=== PATIENT | female | born 1940 | race Caucasian/White ===

== ENCOUNTER 2018-04-29 10:22 | Inpatient (IN) | payer MEDICARE, OTHER ==
[~2018-04-29] VITALS: Ht 162.6 cm; Wt 55.0 kg
--- NOTE | ~2018-04-29 | EKG ---
[place], [place] ELECTROCARDIOGRAM REPORT NAME: AMELIA MARAVILLA UNIT #: [id number] ROOM: 523 DOCTOR: SACHIN DRAFT REPORT BIRTHDATE: [birth year] [facility] Test Date: 2018-04-29 Test Time: 11:02:56 Pat Name: AMELIA MARAVILLA Department: Room: 523 Gender: F Delivery Assistant: NEELAM : 1940 Requested By: AMOR CARDOZA Order Number: [id number] Reading MD: Ashli Huerta MD Measurements Intervals [place] Rate: 82 P: 54 NH: 178 QRS: -10 QRSD: 88 T: 63 QT: 453 QTc: 529 Interpretive Statements Sinus rhythm Atrial premature complex Prolonged QT interval Baseline wander in lead(s) II,III,aVF No previous ECG available for comparison Electronically Signed On 04-30-2018 8:48:12 PST by Ashli Huerta MD CM:EKGRPT:ELECTROCARDIOGRAM REPORT [id number] AMOR CARDOZA EPIPHANY DRAFT REPORT AMOR CARDOZA
[~2018-04-29 10:22] MED LIST: VITAMIN D400 I1 PO
[2018-04-29] MEDS ORDERED: BLOOD PRESSURE (10:23)
[2018-04-29 10:24] VITALS: BP 150/77
[2018-04-29] MEDS ORDERED: VISTARIL25 MG PO (10:24)
[2018-04-29 11:11] LABS: BASO % 0.3 % (0.0-1.0); EOS # 0.2 10*3/uL (0.0-0.4); EOS % 1.5 % (1.0-4.0); HEMATOCRIT 41.3 % (37.0-47.0); HEMOGLOBIN 13.9 g/dl (12.0-16.0); LYMPH % 7.2 % (27.0-41.0); MEAN CELL VOLUME 88.2 fl (81.0-99.0); MEAN CORPUSCULAR HGB 29.7 pg (27.0-31.0); MEAN CORPUSCULAR HGB CONC 33.7 g/dl (33.0-37.0); MEAN PLATELET VOLUME 9.1 fl (9.6-12.3); MONO # 0.5 10*3/uL (0.1-1.0); MONO % 3.6 % (3.0-9.0); NEUT # 11.8 10*3/uL (2.3-7.9); NEUT % 86.7 % (47.0-73.0); PLATELET COUNT AUTOMATED 328 10*3/uL (130-400); RED BLOOD COUNT 4.68 10*6/uL (4.10-5.10); RED CELL DISTRI WIDTH 13.9 % (0-14.5); WHITE BLOOD COUNT 13.7 10*3/uL (4.8-10.8)
[2018-04-29 11:22] LABS: INTERNATIONAL NORM RATIO 0.9 (2.0-3.5)
[2018-04-29 11:30] LABS: ALBUMIN 3.4 gm/dl (3.1-4.5); ALKALINE PHOSPHATASE 114 U/L (45-117); BUN 9 mg/dl (7-24); CHLORIDE 107 mmol/L (98-107); CREATININE 0.85 mg/dL (0.55-1.02); POTASSIUM 3.5 mmol/L (3.5-5.1); SGOT/AST 19 IU/L (3-35); SGPT/ALT 17 U/L (12-78); SODIUM 140 mmol/L (136-145); TOTAL PROTEIN 7.3 gm/dL (6.4-8.2)
[2018-04-29 11:34] LABS: TROPONIN I < 0.015 ng/ml (<0.045)
[2018-04-29 12:04] VITALS: BP 146/80
[2018-04-29 12:45] VITALS: BP 133/67
[2018-04-29] MEDS ORDERED: AMLODIPINE BESYL5 MG PO (12:59)
[2018-04-29 15:22] LABS: BILIRUBIN NEGATIVE (NEGATIVE); BLOOD TRACE-LYSED (NEGATIVE); CLARITY CLEAR (CLEAR); COLOR YELLOW (YELLOW); GLUCOSE NEGATIVE (NEGATIVE); KETONE NEGATIVE (NEGATIVE); LEUKO ESTERASE 2+ (NEGATIVE); NITRITE NEGATIVE (NEGATIVE); PH 7.5 (5.0-9.0); UROBILINOGEN 0.2 E.U./dl (0.2-1.0)
[2018-04-29 15:27] LABS: BACTERIA 2+; RBC 0-2 rbc/hpf (0-2)
[2018-04-29 16:00] VITALS: BP 137/62
[2018-04-29 20:00] VITALS: BP 123/71
[2018-04-30] VITALS: BP 126/64
[2018-04-30 08:36] LABS: BASO % 0.4 % (0.0-1.0); EOS # 0.2 10*3/uL (0.0-0.4); EOS % 2.8 % (1.0-4.0); HEMOGLOBIN 12.9 g/dl (12.0-16.0); LYMPH # 1.5 10*3/uL (1.3-4.4); LYMPH % 20.6 % (27.0-41.0); MEAN CELL VOLUME 90.1 fl (81.0-99.0); MEAN CORPUSCULAR HGB 29.1 pg (27.0-31.0); MEAN CORPUSCULAR HGB CONC 32.3 g/dl (33.0-37.0); MEAN PLATELET VOLUME 9.5 fl (9.6-12.3); MONO # 0.4 10*3/uL (0.1-1.0); MONO % 5.6 % (3.0-9.0); NEUT % 70.2 % (47.0-73.0); PLATELET COUNT AUTOMATED 317 10*3/uL (130-400); RED BLOOD COUNT 4.44 10*6/uL (4.10-5.10); RED CELL DISTRI WIDTH 14.1 % (0-14.5); WHITE BLOOD COUNT 7.1 10*3/uL (4.8-10.8)
[2018-04-30 08:52] LABS: BUN 7 mg/dl (7-24); CHLORIDE 108 mmol/L (98-107); CHOLESTEROL 217 mg/dL (<200); HDL CHOLESTEROL 42 mg/dl (40-60); LDL CHOLESTEROL 142 mg/dL (9-159); PHOSPHOROUS 3.6 mg/dL (2.5-4.9); POTASSIUM 3.6 mmol/L (3.5-5.1); SODIUM 142 mmol/L (136-145); TRIGLYCERIDES 166 mg/dl (<150); VLDL CHOLESTEROL 33 mg/dL (6-40)
[2018-04-30 09:47] LABS: VITAMIN D, 25-HYDROXY 31.2 ng/mL (30-100)
[2018-04-30 12:00] VITALS: BP 135/65
[2018-04-30 16:00] VITALS: BP 130/69
[2018-04-30 20:00] VITALS: BP 139/67
[2018-05-01] VITALS: BP 123/68
[2018-05-01 07:46] LABS: BASO % 0.3 % (0.0-1.0); EOS # 0.1 10*3/uL (0.0-0.4); EOS % 0.4 % (1.0-4.0); HEMATOCRIT 37.9 % (37.0-47.0); HEMOGLOBIN 12.6 g/dl (12.0-16.0); LYMPH # 0.8 10*3/uL (1.3-4.4); LYMPH % 7.2 % (27.0-41.0); MEAN CELL VOLUME 87.9 fl (81.0-99.0); MEAN CORPUSCULAR HGB 29.2 pg (27.0-31.0); MEAN CORPUSCULAR HGB CONC 33.2 g/dl (33.0-37.0); MEAN PLATELET VOLUME 9.7 fl (9.6-12.3); MONO # 0.5 10*3/uL (0.1-1.0); MONO % 3.9 % (3.0-9.0); NEUT # 10.1 10*3/uL (2.3-7.9); NEUT % 87.7 % (47.0-73.0); PLATELET COUNT AUTOMATED 281 10*3/uL (130-400); RED BLOOD COUNT 4.31 10*6/uL (4.10-5.10); RED CELL DISTRI WIDTH 13.8 % (0-14.5); WHITE BLOOD COUNT 11.5 10*3/uL (4.8-10.8)
[2018-05-01 08:00] VITALS: BP 128/78
[2018-05-01 08:06] LABS: ALBUMIN 3.5 gm/dl (3.1-4.5); ALKALINE PHOSPHATASE 106 U/L (45-117); BUN 6 mg/dl (7-24); CHLORIDE 106 mmol/L (98-107); CREATININE 0.67 mg/dL (0.55-1.02); POTASSIUM 3.1 mmol/L (3.5-5.1); SGOT/AST 20 IU/L (3-35); SGPT/ALT 19 U/L (12-78); SODIUM 141 mmol/L (136-145); TOTAL PROTEIN 6.7 gm/dL (6.4-8.2)
[2018-05-01 08:21] VITALS: BP 128/78
[2018-05-01 12:00] VITALS: BP 138/78
[2018-05-01] MEDS ORDERED: MELATONIN3 MG PO (12:35)
== END 2018-05-01 13:18 | disposition home or self-care (01) | DRG 605 ==
LOC: ED 10:22 → 5E 11:41 → EDHOLD 11:41 → 5E 11:57
PROVIDERS: Emergency Medicine; Nurse Practitioner Family; Student in an Organized Health Care Education/Training Program
PROC: 0HQ0XZZ Repair Scalp Skin, External Approach (ICD-10-PCS; principal; 2018-04-29)
DX: S01.01XA Laceration without foreign body of scalp, initial encounter (principal); N39.0 Urinary tract infection, site not specified; R53.1 Weakness; D72.829 Elevated white blood cell count, unspecified; I10 Essential (primary) hypertension; F41.9 Anxiety disorder, unspecified; E55.9 Vitamin D deficiency, unspecified; E53.8 Deficiency of other specified B group vitamins; G30.9 Alzheimer's disease, unspecified; F02.80 Dementia in other diseases classified elsewhere, unspecified severity, without behavioral disturbance, psychotic disturbance, mood disturbance, and anxiety; R29.6 Repeated falls; G47.00 Insomnia, unspecified; R42 Dizziness and giddiness; W19.XXXA Unspecified fall, initial encounter; Y93.89 Activity, other specified; Z79.899 Other long term (current) drug therapy; Y92.89 Other specified places as the place of occurrence of the external cause; Y99.8 Other external cause status; Z85.038 Personal history of other malignant neoplasm of large intestine

== ENCOUNTER 2020-09-10 13:20 | Inpatient (IN) | payer MEDICARE, OTHER ==
[~2020-09-10] VITALS: Ht 160 cm; Wt 50.8 kg
[~2020-09-10 13:20] MED LIST changes: +AMLODIPINE BESYL5 MG PO; +BLOOD PRESSURE; +MELATONIN3 MG PO; +VISTARIL25 MG PO
[2020-09-10 13:30] VITALS: BP 132/74
[2020-09-10 14:13] LABS: HEMATOCRIT 44.3 % (37.0-47.0); MEAN CELL VOLUME 88.2 fl (81.0-99.0); MEAN CORPUSCULAR HGB 28.9 pg (27.0-31.0); MEAN CORPUSCULAR HGB CONC 32.7 g/dl (33.0-37.0); MEAN PLATELET VOLUME 10.1 fl (9.6-12.3); PLATELET COUNT AUTOMATED 485 10*3/uL (130-400); RED BLOOD COUNT 5.02 10*6/uL (4.10-5.10); RED CELL DISTRI WIDTH 13.9 % (0-14.5); WHITE BLOOD COUNT 31.8 10*3/uL (4.8-10.8)
[2020-09-10 14:30] LABS: ALBUMIN 2.5 gm/dl (3.1-4.5); ALKALINE PHOSPHATASE 139 U/L (45-117); BUN 43 mg/dl (7-24); BURR CELLS FEW; CHLORIDE 111 mmol/L (98-107); CPK 11 U/L (26-192); CREATININE 0.67 mg/dL (0.55-1.02); PLATELET SUFFICIENCY NORMAL (NORMAL); POTASSIUM 3.4 mmol/L (3.5-5.1); SGOT/AST 11 IU/L (3-35); SGPT/ALT 13 U/L (12-78); SODIUM 146 mmol/L (136-145); TOTAL CELLS COUNTED 100 #CELLS; TOTAL PROTEIN 7.1 gm/dL (6.4-8.2)
[2020-09-10 14:31] LABS: TROPONIN I < 0.015 ng/ml (<0.045)
[2020-09-10 15:58] LABS: BILIRUBIN 2+ (Negative); BLOOD Negative (Negative); CLARITY Clear (Clear); COLOR Dark Yellow (Yellow); GLUCOSE Negative (Negative); KETONE 2+ (Negative); LEUKO ESTERASE Trace (Negative); NITRITE Negative (Negative)
[2020-09-10 16:09] LABS: BACTERIA 1+; EPITHELIAL CELLS 0-2; FINE GRANULAR CAST 0-2; MUCOUS 1+; RBC 0-2 rbc/hpf (0-2); YEAST TRACE
[2020-09-10 16:53] VITALS: BP 135/78
[2020-09-10 18:30] VITALS: BP 140/73
[2020-09-10] MEDS ORDERED: SERTRALINE HYDR50 MG PO (18:37)
[2020-09-10] MEDS ORDERED: FLUCONAZOLE PO (18:38)
[2020-09-10 20:00] VITALS: BP 146/77
[2020-09-11] VITALS: BP 132/73
[2020-09-11 06:01] LABS: ALBUMIN 2.2 gm/dl (3.1-4.5); ALKALINE PHOSPHATASE 128 U/L (45-117); BUN 38 mg/dl (7-24); CHLORIDE 120 mmol/L (98-107); CREATININE 0.66 mg/dL (0.55-1.02); POTASSIUM 3.6 mmol/L (3.5-5.1); SGOT/AST 7 IU/L (3-35); SGPT/ALT 11 U/L (12-78); SODIUM 152 mmol/L (136-145); TOTAL PROTEIN 6.4 gm/dL (6.4-8.2)
[2020-09-11 06:21] LABS: HEMATOCRIT 42.9 % (37.0-47.0); MEAN CORPUSCULAR HGB 28.5 pg (27.0-31.0); MEAN CORPUSCULAR HGB CONC 31.2 g/dl (33.0-37.0); MEAN PLATELET VOLUME 10.6 fl (9.6-12.3); PLATELET COUNT AUTOMATED 450 10*3/uL (130-400); RED CELL DISTRI WIDTH 13.9 % (0-14.5)
[2020-09-11 06:23] LABS: MEAN CELL VOLUME 91.3 fl (81.0-99.0)
[2020-09-11 07:11] LABS: BURR CELLS MODERATE; PLATELET SUFFICIENCY HIGH (NORMAL); TOTAL CELLS COUNTED 100 #CELLS
[2020-09-11 07:13] LABS: VITAMIN D, 25-HYDROXY 75.6 ng/mL (30-100)
[2020-09-11 08:00] VITALS: BP 148/83
[2020-09-11 12:00] VITALS: BP 132/70
[2020-09-11 16:00] VITALS: BP 130/68
[2020-09-11 20:00] VITALS: BP 120/62
[2020-09-12] VITALS: BP 149/77
[2020-09-12 07:15] LABS: HEMATOCRIT 42.5 % (37.0-47.0); MEAN CELL VOLUME 91.2 fl (81.0-99.0); MEAN CORPUSCULAR HGB 28.8 pg (27.0-31.0); MEAN CORPUSCULAR HGB CONC 31.5 g/dl (33.0-37.0); MEAN PLATELET VOLUME 10.1 fl (9.6-12.3); PLATELET COUNT AUTOMATED 404 10*3/uL (130-400); RED BLOOD COUNT 4.66 10*6/uL (4.10-5.10); RED CELL DISTRI WIDTH 14.1 % (0-14.5); WHITE BLOOD COUNT 13.9 10*3/uL (4.8-10.8)
[2020-09-12 07:33] LABS: CHLORIDE 119 mmol/L (98-107); POTASSIUM 3.2 mmol/L (3.5-5.1); SODIUM 150 mmol/L (136-145)
[2020-09-12 07:36] LABS: CREATININE 0.49 mg/dL (0.55-1.02)
[2020-09-12 07:56] LABS: BUN 29 mg/dl (7-24)
[2020-09-12 08:00] VITALS: BP 139/66
[2020-09-12 08:31] LABS: BURR CELLS MODERATE; OVALOCYTES FEW; PLATELET SUFFICIENCY HIGH (NORMAL); POLYCHROMASIA SLIGHT; TOTAL CELLS COUNTED 100 #CELLS
[2020-09-12 12:00] VITALS: BP 137/75
[2020-09-12 16:00] VITALS: BP 122/63
[2020-09-12 20:00] VITALS: BP 128/69
[2020-09-13] VITALS: BP 131/74
[2020-09-13 08:00] VITALS: BP 130/68
[2020-09-13 08:05] LABS: BUN 23 mg/dl (7-24); CHLORIDE 117 mmol/L (98-107); CREATININE 0.61 mg/dL (0.55-1.02); POTASSIUM 3.1 mmol/L (3.5-5.1); SODIUM 149 mmol/L (136-145)
[2020-09-13 12:00] VITALS: BP 143/73
[2020-09-13 16:00] VITALS: BP 134/65
[2020-09-13 20:00] VITALS: BP 138/77
[2020-09-14] VITALS: BP 148/66
[2020-09-14 07:50] VITALS: BP 122/56
[2020-09-14 12:00] VITALS: BP 132/54
[2020-09-14 16:00] VITALS: BP 130/56
[2020-09-14] MEDS ORDERED: MELATONIN10 M2 PO (17:54)
[2020-09-14 20:00] VITALS: BP 132/77
[2020-09-15] VITALS: BP 144/66
[2020-09-15 06:28] LABS: MEAN CELL VOLUME 89.4 fl (81.0-99.0); MEAN CORPUSCULAR HGB 28.7 pg (27.0-31.0); MEAN CORPUSCULAR HGB CONC 32.1 g/dl (33.0-37.0); MEAN PLATELET VOLUME 9.8 fl (9.6-12.3); PLATELET COUNT AUTOMATED 311 10*3/uL (130-400); RED BLOOD COUNT 4.36 10*6/uL (4.10-5.10); RED CELL DISTRI WIDTH 13.7 % (0-14.5); WHITE BLOOD COUNT 12.2 10*3/uL (4.8-10.8)
[2020-09-15 06:40] LABS: CHLORIDE 111 mmol/L (98-107); CREATININE 0.57 mg/dL (0.55-1.02); POTASSIUM 2.6 mmol/L (3.5-5.1); SODIUM 144 mmol/L (136-145)
[2020-09-15 06:42] LABS: BUN 12 mg/dl (7-24)
[2020-09-15 07:03] LABS: ATYPICAL LYMPHS 1 % (0-0); TOTAL CELLS COUNTED 100 #CELLS
[2020-09-15 07:04] LABS: BURR CELLS FEW; OVALOCYTES FEW; PLATELET SUFFICIENCY NORMAL (NORMAL)
[2020-09-15 08:00] VITALS: BP 153/93
[2020-09-15 12:00] VITALS: BP 157/84
[2020-09-15] MEDS ORDERED: UNASYN 3 GM VIAL3 GM IV ×2 (12:32→14:25)
[2020-09-15] MEDS ORDERED: Nystatin 100,000 UNI PO (12:32)
[2020-09-15] MEDS ORDERED: NATURE'S BLEND F1 MG PO (12:32)
[2020-09-15 16:00] VITALS: BP 157/84
== END 2020-09-15 18:24 | DRG 871 ==
LOC: ED 13:20 → 5E 15:45 → EDHOLD 15:45 → 5E 16:17
PROVIDERS: Emergency Medicine; Internal Medicine; Registered Nurse; ADMIT Internal Medicine; ATTEND Internal Medicine
PROC: 02HV33Z Insertion of Infusion Device into Superior Vena Cava, Percutaneous Approach (ICD-10-PCS; principal; 2020-09-15)
PROC: B548ZZA Ultrasonography of Superior Vena Cava, Guidance (ICD-10-PCS; 2020-09-15)
DX: A41.2 Sepsis due to unspecified staphylococcus (principal); G93.41 Metabolic encephalopathy; J15.6 Pneumonia due to other Gram-negative bacteria; E87.0 Hyperosmolality and hypernatremia; E44.0 Moderate protein-calorie malnutrition; B37.0 Candidal stomatitis; Z68.1 Body mass index [BMI] 19.9 or less, adult; R65.20 Severe sepsis without septic shock; E87.6 Hypokalemia; R13.10 Dysphagia, unspecified; K11.20 Sialoadenitis, unspecified; F03.90 Unspecified dementia, unspecified severity, without behavioral disturbance, psychotic disturbance, mood disturbance, and anxiety; Z66 Do not resuscitate; Z51.5 Encounter for palliative care; F41.9 Anxiety disorder, unspecified; I10 Essential (primary) hypertension; E86.0 Dehydration; M54.2 Cervicalgia; D47.3 Essential (hemorrhagic) thrombocythemia; R63.0 Anorexia; R53.83 Other fatigue; R73.9 Hyperglycemia, unspecified; Z85.038 Personal history of other malignant neoplasm of large intestine; Z82.49 Family history of ischemic heart disease and other diseases of the circulatory system; Z79.899 Other long term (current) drug therapy; Z20.822 Contact with and (suspected) exposure to COVID-19

== ENCOUNTER 2020-09-20 11:16 | Emergency (ER) | payer MEDICARE, OTHER ==
[~2020-09-20] VITALS: Wt 54.9 kg
[~2020-09-20 11:16] MED LIST changes: +FLUCONAZOLE PO; +MELATONIN10 M2 PO; +NATURE'S BLEND F1 MG PO; +Nystatin 100,000 UNI PO; +SERTRALINE HYDR50 MG PO; +UNASYN 3 GM VIAL3 GM IV
[2020-09-20 13:03] LABS: BASO # 0.1 10*3/uL (0.0-0.1); BASO % 0.4 % (0.0-1.0); EOS # 0.7 10*3/uL (0.0-0.4); EOS % 3.9 % (1.0-4.0); HEMATOCRIT 39.6 % (37.0-47.0); LYMPH % 6.1 % (27.0-41.0); MEAN CELL VOLUME 88.8 fl (81.0-99.0); MEAN CORPUSCULAR HGB 28.5 pg (27.0-31.0); MEAN CORPUSCULAR HGB CONC 32.1 g/dl (33.0-37.0); MEAN PLATELET VOLUME 9.8 fl (9.6-12.3); MONO # 0.9 10*3/uL (0.1-1.0); MONO % 5.1 % (3.0-9.0); NEUT % 83.5 % (47.0-73.0); PLATELET COUNT AUTOMATED 273 10*3/uL (130-400); RED BLOOD COUNT 4.46 10*6/uL (4.10-5.10); RED CELL DISTRI WIDTH 14.3 % (0-14.5); WHITE BLOOD COUNT 16.8 10*3/uL (4.8-10.8)
[2020-09-20 13:14] LABS: ACT PARTIAL THROMBO TIME 27.6 SECONDS (20.0-32.1); INTERNATIONAL NORM RATIO 1.1 (2.0-3.5)
[2020-09-20 13:18] LABS: ALBUMIN 2.1 gm/dl (3.1-4.5); ALKALINE PHOSPHATASE 117 U/L (45-117); BUN 10 mg/dl (7-24); CHLORIDE 108 mmol/L (98-107); CREATININE 0.63 mg/dL (0.55-1.02); LIPASE 99 U/L (73-393); POTASSIUM 3.4 mmol/L (3.5-5.1); SGOT/AST 21 IU/L (3-35); SGPT/ALT 15 U/L (12-78); SODIUM 141 mmol/L (136-145); TOTAL PROTEIN 5.8 gm/dL (6.4-8.2); TROPONIN I < 0.015 ng/ml (<0.045)
[2020-09-20 13:41] LABS: BILIRUBIN Negative (Negative); BLOOD Negative (Negative); CLARITY Clear (Clear); COLOR Yellow (Yellow); GLUCOSE Negative (Negative); KETONE Trace (Negative); LEUKO ESTERASE Negative (Negative); NITRITE Negative (Negative); PH 6.5 (4.5-8.0); UROBILINOGEN 0.2 E.U./dl (0.0-1.0)
[2020-09-20 13:51] LABS: EPITHELIAL CELLS 0-2
== END 2020-09-20 15:53 ==
LOC: ED 11:16
PROVIDERS: Physician Assistant
DX: R79.89 Other specified abnormal findings of blood chemistry (principal); Z79.899 Other long term (current) drug therapy; Z98.890 Other specified postprocedural states